=== PATIENT | female | born 1955 | race African-American/Black ===

== ENCOUNTER 2020-11-26 13:34 | Emergency (ER) | payer MEDICAID ==
[~2020-11-26] VITALS: Ht 167.6 cm; Wt 89.4 kg
[2020-11-26 15:23] LABS: Basophils # (auto) 0 10 ^3/uL (0-0.2); Basophils % (auto) 0.5 % (0.0-2.0); Eosinophils # (auto) 0.3 10 ^3/uL (0-0.8); Eosinophils % (auto) 3.1 % (0.0-7.0); Hematocrit 43.4 % (36.0-46.0); Lymphocytes # (auto) 3.3 10 ^3/uL (0.4-5.4); Lymphocytes % (auto) 37.9 % (10.0-50.0); Mean Corpuscular Hemoglobin 29.5 pg (28.0-32.0); Mean Corpuscular Hgb Conc. 34.7 g/dL (32.0-36.0); Monocytes # (auto) 0.8 10 ^3/uL (0-1.3); Monocytes % (auto) 9.1 % (0.0-12.0); Neutrophils # (auto) 4.4 10 ^3/uL (1.6-8.6); Neutrophils % (auto) 49.4 % (37.0-80.0); Platelet Count (auto) 251 10^3/uL (140-450); Red Blood Cells 5.11 10^6/uL (4.0-5.20); Red Cell Distribution Width 14.2 % (11.8-14.3); White Blood Cell 8.8 10^3/uL (4.4-10.8)
[2020-11-26 15:42] LABS: Albumin 4.5 g/dL (3.4-5.0); Anion Gap 6 (5-15); Blood Urea Nitrogen 11 mg/dL (7-18); Calcium 9.9 mg/dL (8.5-10.1); Carbon Dioxide 30 mmol/L (21-32); Chloride 105 mmol/L (98-107); Glucose 87 mg/dL (74-106); Magnesium 2.7 mg/dL (1.6-2.6); Potassium 3.9 mmol/L (3.5-5.1); Sodium 141 mmol/L (136-145)
[2020-11-26 15:50] LABS: Alanine Aminotransferase 31 U/L (13-56); Alkaline Phosphatase 111 U/L (45-117); Aspartate Aminotransferase 31 U/L (15-37); Bilirubin, Total 0.5 mg/dL (0.2-1.0); GFR African American 72 mL/min; GFR Non-African American 59 mL/min; Total Protein 8.5 g/dL (6.4-8.2)
[2020-11-26 16:34] LABS: Urine Bacteria FEW /hpf (None Seen); Urine Blood Negative /uL (Negative); Urine Mucus FEW (None Seen); Urine Specific Gravity 1.022 (1.001-1.035); Urine WBC 2 /hpf (0 - 5)
[2020-11-26 17:00] VITALS: BP 158/81
[2020-11-26] MEDS ORDERED: KETOROLAC TROMETH 60MG/2ML VIAL IM ONE (17:00)
== END 2020-11-26 18:07 | disposition home or self-care (01) ==
LOC: ER 13:34
DX: R42 Dizziness and giddiness (principal); M54.31 Sciatica, right side; I10 Essential (primary) hypertension; Z90.49 Acquired absence of other specified parts of digestive tract
CPT/HCPCS: 36415; 80053; 81001; 83735; 84484; 85025; 85049; 93005; 96372; 99284; J1885

== ENCOUNTER 2022-12-22 11:27 | Emergency (ER) | payer OTHER ==
[~2022-12-22] VITALS: Ht 167.6 cm; Wt 90.8 kg
[~2022-12-22 11:27] MED LIST: MELO7.5T9 PO
[2022-12-22] MEDS ORDERED: ASPirin 81 mg TAB PO ONE (12:15)
[2022-12-22] MEDS ORDERED: SODIUM CHLORIDE 0.9% 1,000 ML IV ONE (12:15)
[2022-12-22] MEDS ORDERED: LABETALOL HCL 5 MG/ML 4ML SYRINGE IV ONE (12:15)
[2022-12-22] MEDS ORDERED: LORazepam 2MG/ML-1ML VIAL IV ONE (12:15)
[2022-12-22 12:16] LABS: Basophils # (auto) 0 10 ^3/uL (0-0.2); Basophils % (auto) 0.5 % (0.0-2.0); Eosinophils # (auto) 0.2 10 ^3/uL (0-0.8); Eosinophils % (auto) 2.5 % (0.0-7.0); Hematocrit 46.2 % (36.0-46.0); Hemoglobin 15.2 g/dL (12.2-16.2); Lymphocytes # (auto) 2.6 10 ^3/uL (0.4-5.4); Lymphocytes % (auto) 32.7 % (10.0-50.0); Mean Corpuscular Hemoglobin 28.1 pg (28.0-32.0); Mean Corpuscular Volume 85.2 fL (80.0-100.0); Monocytes # (auto) 0.7 10 ^3/uL (0-1.3); Monocytes % (auto) 8.1 % (0.0-12.0); Neutrophils # (auto) 4.5 10 ^3/uL (1.6-8.6); Neutrophils % (auto) 56.2 % (37.0-80.0); Nucleated Red Blood Cells % 0.1 %; Red Blood Cells 5.42 10^6/uL (4.0-5.20); Red Cell Distribution Width 14.9 % (11.8-14.3)
[2022-12-22 12:30] LABS: Albumin 4.2 g/dL (3.4-5.0); Calcium 9.4 mg/dL (8.5-10.1); Potassium 3.6 mmol/L (3.5-5.1)
[2022-12-22 12:35] LABS: BUN/Creatinine Ratio 10.4 (10.0-20.0); Bilirubin, Total 0.6 mg/dL (0.2-1.0); Total Protein 8.4 g/dL (6.4-8.2)
[2022-12-22 13:01] LABS: Urine Bacteria NONE SEEN /hpf (None Seen); Urine Blood Negative /uL (Negative); Urine Hyaline Cast FEW /lpf (0 - 2); Urine Specific Gravity 1.006 (1.001-1.035); Urine WBC <1 /hpf (0 - 5)
[2022-12-22 13:14] VITALS: RESP 18; O2SAT 98
[2022-12-22] MEDS ORDERED: NEBI5TAB12 PO (13:47)
[2022-12-22] MEDS ORDERED: HYDR25TA5 PO (13:47)
[2022-12-22 14:19] VITALS: BP 158/82; PULSE 67; RESP 18; TEMP 98.3; O2SAT 97
== END 2022-12-22 15:00 | disposition home or self-care (01) ==
LOC: ER 11:27
DX: I10 Essential (primary) hypertension (principal); R10.9 Unspecified abdominal pain; R51.9 Headache, unspecified; Z90.49 Acquired absence of other specified parts of digestive tract
CPT/HCPCS: 36415; 71046; 80053; 81001; 83735; 84443; 85025; 93005; 96361; 96374; 96375; 99285; J2060; J3490; J7030

== ENCOUNTER 2024-06-23 16:34 | Emergency (ER) | payer OTHER ==
[~2024-06-23] VITALS: Ht 167.6 cm; Wt 91.9 kg
[~2024-06-23 16:34] MED LIST changes: +HYDR25TA5 PO; +NEBI5TAB12 PO
--- NOTE | 2024-06-23 17:32 | ED.PDOC ---
Back pain HPI Chief Complaint: Back Pain Comments pt has been coughing for 2 weeks. now has upper back pain with palpation. no sob. no fever, no pain on coughing. no abdominal or chest pain. pt denies any medical history Time Seen by MD: 16:49 Primary Care Provider: DR RUBI Allergies: Coded Allergies: NO KNOWN ALLERGIES (Unverified , 09/20/14) Home Meds Active Scripts Hctz (Hydrochlorothiazide) 25 Mg Tab, 12.5 MG PO DAILY for 30 Days, #30 TAB Prov:TANMAY BURROWS MD 12/22/22 Nebivolol HCl (Nebivolol) 5 Mg Tab, 5 MG PO DAILY for 30 Days, #30 TAB Prov:TANMAY BURROWS MD 12/22/22 Meloxicam (Mobic) 7.5 Mg Tab, 7.5 MG PO BID, #30 TAB Prov:JABARI PETERSON 07/01/22 Information Source: Patient Mode of Arrival: Ambulatory Timing: Weeks Onset: Other (after coughing) Associated signs and symptoms: None Past Medical History PAST MEDICAL HISTORY: HTN Surgical History: Cholecystectomy [employer]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: 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 Family History Family History: Reviewed,noncontributory to illness Social History Smoker: Non-Smoker Alcohol: Denies ETOH Use Drugs: Denies Drug Use Lives In: Home Constitutional: denies: chills, diaphoresis, fatigue, fever, malaise, sweats, weakness, others EENTM: denies: blurred vision, double vision, ear bleeding, ear discharge, ear drainage, ear pain, ear ringing, eye pain, eye redness, hearing loss, mouth pain, mouth swelling, nasal discharge, nose bleeding, nose congestion, nose pain, photophobia, tearing, throat pain, throat swelling, voice changes, others Respiratory: denies: cough, hemoptysis, orthopnea, SOB at rest, shortness of breath, SOB with excertion, stridor, wheezing, others Cardiovascular: denies: chest pain, dizzy spells, diaphoresis, Dyspnea on exert ion, edema, irregular heart beat, left arm pain, lightheadedness, palpitations, PND, syncope, others Gastrointestinal: denies: abdomen distended, abdominal pain, blood streaked bowels, constipated, diarrhea, dysphagia, difficulty swallowing, hematemesis, melena, nausea, poor appetite, poor fluid intake, rectal bleeding, rectal pain, vomiting, others Genitourinary: denies: abnormal vagina bleeding, burning, dyspareunia, dysuria, flank pain, frequency, hematuria, incontinence, pain, , vagina discharge, urgency, others Neurological: denies: dizziness, fainting, headache, left sided numbness, left sided weakness, numbness, paresthesia, pre-existing deficit, right sided numbness, right sided weakness, seizure, speech problems, tingling, tremors, weakness, others Musculoskeletal: reports: back pain; denies: gout, joint pain, joint swelling, muscle pain, muscle stiffness, neck pain, others Integumetry: denies: bruises, change in color, change in hair/nails, dryness, laceration, lesions, lumps, rash, wounds, others Allergic/Immunocompromised: denies: Difficulty Healing, Frequent Infections, Hives, Itching, others Hematologic/Lymphatic: denies: anemia, blood clots, easy bleeding, easy bruising, swollen glands, others Endocrine: denies: excessive hunger, excessive sweating, excessive thirst, excessive urination, flushing, intolerance to cold, intolerance to heat, unexplained weight gain, unexplained weight loss, others Psychiatric: denies: anxiety, bipolar disorder, depression, hopeless, panic disorder, schizophrenia, sleepless, suicidal, others All Other Systems: Reviewed and Negative Physical Exam General Appearance: No Apparent Distress, Normal HEENT: Normal ENT Inspection, Pharynx Normal, TMs Normal Neck: Full Range of Motion, Non-Tender, Normal, Normal Inspection Respiratory: Chest Non-Tender, Lungs Clear, No Accessory Muscle Use, No Respiratory Distress, Normal Breath Sounds Cardiovascular: No Edema, No JVD, No Murmur, No Gallop, Normal Peripheral Pulses, Regular Rate/Rhythm Breast Exam: Deferred Gastrointestinal: No Organomegaly, Non Tender, No Pulsatile Mass, Normal Bowel Sounds, Soft Genitalia: Deferred Pelvic: Deferred Rectal: Deferred Extremities: No calf tenderness, Normal capillary refill, Normal inspection, Normal range of motion, Non-tender, No pedal edema Musculoskeletal : Extremity Location: Back (upper back) Apperance: Normal, Tenderness, Tenderness: Mild Neurologic: Alert, preprint analyst II-XII nml as Tested, No Motor Deficits, Normal Affect, Normal Mood, No Sensory Deficits Cerebellar Function: Normal Reflexes: Normal Skin: Dry, Normal Color, Warm Lymphatic: No Adenopathy Was a procedure done? Was a procedure done?: No EKG EKG : Pulse Rate (adult): 90 [place]: Normal Cardiac Rhythm: NSR Block: None Hypertrophy: None ST: Normal Back Pain Differential Dx Differential Diagnosis: Musculoskeletal Pain, Other (pneumonia, pleurisy, rib fractures, ptx) X-Ray, Labs, Meds, VS Vital Signs Date Time Temp Pulse Resp B/P (MAP) Pulse Ox O2 Delivery O2 Flow Rate FiO2 06/23/24 17:41 186/101 06/23/24 17:32 90 06/23/24 17:29 98.9 73 16 180/85 (116) 97 06/23/24 17:29 16 97 Room Air* 0 21 Lab Test 06/23/24 18:01 Range/Units White Blood Count 8.1 4.4-10.8 10^3/uL Red Blood Count 5.47 H 4.0-5.20 10^6/uL Hemoglobin 15.2 12.2-16.2 g/dL Hematocrit 46.5 H 36.0-46.0 % Mean Corpuscular Volume 85.1 80.0-100.0 fL Mean Corpuscular Hemoglobin 27.7 L 28.0-32.0 pg Mean Corpuscular Hemoglobin Concent 32.6 32.0-36.0 g/dL Red Cell Distribution Width 14.8 H 11.8-14.3 % Platelet Count 260 140-450 10^3/uL Mean Platelet Volume 7.7 6.9-10.8 fL Neutrophils (%) (Auto) 44.6 37.0-80.0 % Lymphocytes (%) (Auto) 38.8 10.0-50.0 % Monocytes (%) (Auto) 10.7 0.0-12.0 % Eosinophils (%) (Auto) 5.4 0.0-7.0 % Basophils (%) (Auto) 0.5 0.0-2.0 % Neutrophils # (Auto) 3.6 1.6-8.6 10 ^3/uL Lymphocytes # (Auto) 3.1 0.4-5.4 10 ^3/uL Monocytes # (Auto) 0.9 0-1.3 10 ^3/uL Eosinophils # (Auto) 0.4 0-0.8 10 ^3/uL Basophils # (Auto) 0 0-0.2 10 ^3/uL Nucleated Red Blood Cells 0.0 % Sodium Level 141 136-145 mmol/L Potassium Level 4.2 3.5-5.1 mmol/L Chloride Level 107 98-107 mmol/L Carbon Dioxide Level 28 20-31 mmol/L Anion Gap 6 5-15 Blood Urea Nitrogen 11 9-23 mg/dL Creatinine 0.99 0.550-1.02 mg/dL Glomerular Filtration Rate Calc 62 >90 mL/min BUN/Creatinine Ratio 11.1 10.0-20.0 Serum Glucose 97 74-106 mg/dL Calcium Level 10.2 8.7-10.4 mg/dL Troponin I High Sensitivity 3 L </=34 ng/L Current Medications Medications (Trade) Dose Ordered Sig/Markus Route Start Time Stop Time Status Last Admin Acetaminophen/ Hydrocodone Bitart ([place] 5/325MG Tab) 1 tab ONCE ONCE PO 06/23/24 17:30 06/23/24 17:31 DC 06/23/24 17:39 Clonidine HCl (Catapres Tablet) 0.1 mg ONCE ONCE PO 06/23/24 17:45 06/23/24 17:46 DC 06/23/24 17:41 Time of 1ST Reevaluation: 19:31 Reevaluation 1ST: Improved Patient Education/Counseling: Diagnosis, Treatment, Prognosis, Need For Follow Up Family Education/Counseling: No Family Present Departure 1 Departure Time of Disposition: 19:26 Impression: Primary Impression: Back pain Qualified Codes: M54.6 - Pain in thoracic spine Additional Impressions: Bronchitis Hypertension Qualified Codes: I10 - Essential (primary) hypertension Disposition: 01 HOME / SELF CARE / HOMELESS Condition: Good Additional Instructions: start a no salt added diet. follow up with your doctor to recheck your blood pressure. you may take tylenol as needed with your prescribed muscle relaxant for back pain e-Prescriptions Cyclobenzaprine Hcl (CYCLOBENZAPRINE HCL) 7.5 Mg Tab 7.5 MG PO Q12HP PRN, #4 TAB Prov: CHRIS MCCRARY MD 06/23/24 Hctz (Hydrochlorothiazide) 25 Mg Tab 25 MG GT DAILY for 10 Days, #10 TAB Prov: CHRIS MCCRARY MD 06/23/24 Discharged With: Self Critical Care Note Critical Care Time?: No Stability Stability form required: No HERMANNHAICHI S MD Jun 23, 2024 17:32
[2024-06-23] MEDS: HYDROcodone-ACET 5/325MG TAB PO ONE (17:39)
[2024-06-23] MEDS: cloNIDine HCL 0.1 MG TAB PO ONE (17:41)
[2024-06-23 18:13] LABS: Basophils # (auto) 0 10 ^3/uL (0-0.2); Basophils % (auto) 0.5 % (0.0-2.0); Eosinophils # (auto) 0.4 10 ^3/uL (0-0.8); Eosinophils % (auto) 5.4 % (0.0-7.0); Hematocrit 46.5 % (36.0-46.0); Hemoglobin 15.2 g/dL (12.2-16.2); Lymphocytes # (auto) 3.1 10 ^3/uL (0.4-5.4); Lymphocytes % (auto) 38.8 % (10.0-50.0); Mean Corpuscular Hemoglobin 27.7 pg (28.0-32.0); Mean Corpuscular Hgb Conc. 32.6 g/dL (32.0-36.0); Mean Corpuscular Volume 85.1 fL (80.0-100.0); Monocytes # (auto) 0.9 10 ^3/uL (0-1.3); Monocytes % (auto) 10.7 % (0.0-12.0); Neutrophils # (auto) 3.6 10 ^3/uL (1.6-8.6); Neutrophils % (auto) 44.6 % (37.0-80.0); Platelet Count (auto) 260 10^3/uL (140-450); Red Blood Cells 5.47 10^6/uL (4.0-5.20); Red Cell Distribution Width 14.8 % (11.8-14.3); White Blood Cell 8.1 10^3/uL (4.4-10.8)
[2024-06-23 18:20] LABS: Chloride 107 mmol/L (98-107); Potassium 4.2 mmol/L (3.5-5.1); Sodium 141 mmol/L (136-145)
[2024-06-23 18:21] LABS: Anion Gap 6 (5-15); Calcium 10.2 mg/dL (8.7-10.4); Carbon Dioxide 28 mmol/L (20-31)
[2024-06-23 18:26] LABS: BUN/Creatinine Ratio 11.1 (10.0-20.0); Blood Urea Nitrogen 11 mg/dL (9-23); Glucose 97 mg/dL (74-106)
--- NOTE | 2024-06-23 18:57 | DVH ---
Procedure: XY CHEST PORTABLE 06/23/2024 06:01 PM Indication: back pain Comparison: None TECHNIQUE: XY CHEST PORTABLE FINDINGS: Medical devices: None. Cardiomediastinal: The heart is normal in size. Pulmonary vasculature is within normal limits. Lungs: No focal pulmonary opacity is seen. The costophrenic angles are clear. No pneumothorax. Bones/soft tissues: No acute abnormality is noted. IMPRESSION: 1. No acute cardiopulmonary disease.
[2024-06-23] MEDS ORDERED: HYDR25TA5 GT (19:28)
[2024-06-23] MEDS ORDERED: CYCL-838 PO (19:29)
[2024-06-23 20:17] VITALS: BP 114/67; PULSE 67; RESP 18; TEMP 98; O2SAT 96
== END 2024-06-23 20:27 | disposition home or self-care (01) ==
LOC: ER 16:43
DX: J40 Bronchitis, not specified as acute or chronic (principal); I10 Essential (primary) hypertension; M54.6 Pain in thoracic spine; Z79.899 Other long term (current) drug therapy; Z90.49 Acquired absence of other specified parts of digestive tract
CPT/HCPCS: 36415; 71045; 80048; 84484; 85025

== ENCOUNTER 2025-02-02 14:46 | Inpatient (IN) | payer OTHER ==
[~2025-02-02] VITALS: Ht 167.6 cm; Wt 95.5 kg
[~2025-02-02 14:46] MED LIST changes: +CYCL-838 PO; +HYDR25TA5 GT
--- NOTE | 2025-02-02 15:17 | ED.PDOC ---
History of Present Illness(SKN HPI Comments 69 y.o female presents to the ED for an evaluation of right lower leg swelling associated with erythema that started 1 week ago s/p mosquito bite. Patient reports she [place] when she noticed mosquito bites to her leg. Patient was seen by PCP 5 days ago, placed her on Augmentin but states swelling has worsened. She denies any fever, chills, weeping wound, chest pain or SOB. Chief Complaint: Lower Extremity Time Seen by MD: 15:07 Primary Care Provider: DR RUBI History of Present Illness: Nurses Notes, Medications, Allergies Allergies: Coded Allergies: NO KNOWN ALLERGIES (Unverified , 09/20/14) Home Meds Active Scripts Cyclobenzaprine Hcl (CYCLOBENZAPRINE HCL) 7.5 Mg Tab, 7.5 MG PO Q12HP PRN, #4 TAB Prov:CHRIS MCCRARY MD 06/23/24 Hctz (Hydrochlorothiazide) 25 Mg Tab, 25 MG GT DAILY for 10 Days, #10 TAB Prov:CHRIS MCCRARY MD 06/23/24 Hctz (Hydrochlorothiazide) 25 Mg Tab, 12.5 MG PO DAILY for 30 Days, #30 TAB Prov:TANMAY BURROWS MD 12/22/22 Nebivolol HCl (Nebivolol) 5 Mg Tab, 5 MG PO DAILY for 30 Days, #30 TAB Prov:TANMAY BURROWS MD 12/22/22 Meloxicam (Mobic) 7.5 Mg Tab, 7.5 MG PO BID, #30 TAB Prov:JABARI PETERSON 07/01/22 Information Source: Patient Mode of Arrival: Ambulatory Severity: Moderate Timing: Weeks (1) Duration: Since onset Location: Leg Mechanism: Insect Occurence: Outdoors Object: None Wound Type: Other Associated Signs and Symptoms: Redness, Swelling Past Medical History PAST MEDICAL HISTORY: Denies Surgical History: Cholecystectomy [employer]PENTER [employer] MAINTENANCE History: No Pertinent [employer]INTENANCE History Family History Family History: Reviewed,noncontributory to illness Social History Smoker: Non-Smoker Alcohol: Denies ETOH Use Drugs: Denies Drug Use Lives In: Home Constitutional: denies: chills, diaphoresis, fatigue, fever, malaise, sweats, weakness, others EENTM: denies: blurred vision, double vision, ear bleeding, ear discharge, ear drainage, ear pain, ear ringing, eye pain, eye redness, hearing loss, mouth pain, mouth swelling, nasal discharge, nose bleeding, nose congestion, nose pain, photophobia, tearing, throat pain, throat swelling, voice changes, others Respiratory: denies: cough, hemoptysis, orthopnea, SOB at rest, shortness of breath, SOB with excertion, stridor, wheezing, others Cardiovascular: denies: chest pain, dizzy spells, diaphoresis, Dyspnea on exertion, edema, irregular heart beat, left arm pain, lightheadedness, palpitations, PND, syncope, others Gastrointestinal: denies: abdomen distended, abdominal pain, blood streaked bowels, constipated, diarrhea, dysphagia, difficulty swallowing, hematemesis, melena, nausea, poor appetite, poor fluid intake, rectal bleeding, rectal pain, vomiting, others Genitourinary: denies: abnormal vagina bleeding, burning, dyspareunia, dysuria, flank pain, frequency, hematuria, incontinence, pain, , vagina discharge, urgency, others Neurological: denies: dizziness, fainting, headache, left sided numbness, left sided weakness, numbness, paresthesia, pre-existing deficit, right sided numbness, right sided weakness, seizure, speech problems, tingling, tremors, weakness, others Musculoskeletal: denies: back pain, gout, joint pain, joint swelling, muscle p ain, muscle stiffness, neck pain, others Integumetry: reports: others (Erythema to the right lower extremity with swelling ); denies: bruises, change in color, change in hair/nails, dryness, laceration, lesions, lumps, rash, wounds Allergic/Immunocompromised: denies: Difficulty Healing, Frequent Infections, Hives, Itching, others Hematologic/Lymphatic: denies: anemia, blood clots, easy bleeding, easy bruising, swollen glands, others Endocrine: denies: excessive hunger, excessive sweating, excessive thirst, excessive urination, flushing, intolerance to cold, intolerance to heat, unexplained weight gain, unexplained weight loss, others Psychiatric: denies: anxiety, bipolar disorder, depression, hopeless, panic disorder, schizophrenia, sleepless, suicidal, others All Other Systems: Reviewed and Negative Physical Exam General Appearance: Moderate Distress HEENT: Normal ENT Inspection, Pharynx Normal, TMs Normal Neck: Full Range of Motion, Non-Tender, Normal, Normal Inspection Respiratory: Chest Non-Tender, Lungs Clear, No Accessory Muscle Use, No Respiratory Distress, Normal Breath Sounds Cardiovascular: No Edema, No JVD, No Murmur, No Gallop, Normal Peripheral Pulses, Regular Rate/Rhythm Breast Exam: Deferred Gastrointestinal: No Organomegaly, Non Tender, No Pulsatile Mass, Normal Bowel Sounds, Soft Genitalia: Deferred Pelvic: Deferred Rectal: Deferred Extremities: No calf tenderness, Swelling (Right lower extremity) Musculoskeletal : Apperance: Normal Neurologic: Alert, pot pusher II-XII nml as Tested, No Motor Deficits, Normal Affect, Normal Mood, No Sensory Deficits Cerebellar Function: Normal, NOT DONE Reflexes: Normal, NOT DONE Skin: Dry, Normal Color, Warm Peripheral Pulses: 3+ Radial (R), 3+ Radial (L) Lymphatic: No Adenopathy Was a procedure done? Was a procedure done?: No Differential Diagnosis (INTG) Differential Diagnosis: Cellulitis, Insect Envenomation, Puncture Wound Differential Diagnosis: Viral exanthema X-Ray, Labs, Meds, VS Vital Signs Date Time Temp Pulse Resp B/P (MAP) Pulse Ox O2 Delivery O2 Flow Rate FiO2 02/02/25 14:47 98.9 96 16 179/94 95 98.9 Patient alert. Does have right lower extremity swelling. Has been having this symptom for weeks. Vitals stable. No shortness a breath. Blood pressure elevated. Was given clonidine. Explained to the patient that she will need to be admitted for intravenous antibiotics. Continue monitoring. Time of 1ST Reevaluation: 15:13 Reevaluation 1ST: Unchanged Patient Education/Counseling: Diagnosis, Treatment, Prognosis Family Education/Counseling: No Family Present SEPSIS Sepsis Screen Date sepsis recognized/suspect: Feb 02, 2025 Time Sepsis recognized/suspect: 1447 Recent Procedure: No On Antibiotic Therapy: No Respiratory Rate >20: No Heart Rate >90: Yes Temp<36 C (96.8 F) or >38.3 C: No SBP <90 or MAP <65 mmHG: No New Acute Mental Status Change: No Is the patient on CPAP, BIPAP,: No Physician Orders Troponin-I Hs (02/02/25 16:47) Complete Blood Count (02/02/25 16:47) Urinalysis (02/02/25 16:47) Basic Metabolic Panel (02/02/25 16:47) 1 Liter Bolus Of 0.9% Ns (02/02/25 17:00) Ceftriaxone Ivpb Rocephin (02/02/25 17:00) Clindamycin Ivpb Cleocin (02/02/25 17:00) Vital Signs Date Time Temp Pulse Resp B/P (MAP) Pulse Ox O2 Delivery O2 Flow Rate FiO2 02/02/25 14:47 98.9 96 16 179/94 95 98.9 Departure 1 Departure Time of Disposition: 16:50 Impression: Primary Impression: Cellulitis Qualified Codes: L03.115 - Cellulitis of right lower limb Disposition: ADMITTED INPATIENT Admit to: Med Surg Condition: Guarded Critical Care Note Critical Care Time?: No Stability Stability form required: No I personally scribed for FRED CHAUHAN MD ([email or web address]) on 02/02/25 at 15:17. Electronically submitted by Radha Nelson ([facility]). FRED CHAUHAN MD Feb 02, 2025 15:17
[2025-02-02 17:37] LABS: Potassium 3.9 mmol/L (3.5-5.1); Sodium 144 mmol/L (136-145)
[2025-02-02 17:38] LABS: Anion Gap 9 (5-15); Carbon Dioxide 28 mmol/L (20-31); Hematocrit 41.8 % (36.0-46.0); Hemoglobin 14.0 g/dL (12.2-16.2); Mean Corpuscular Hemoglobin 28.6 pg (28.0-32.0); Mean Corpuscular Volume 85.6 fL (80.0-100.0); Nucleated Red Blood Cells % 0.0 %
[2025-02-02 17:39] LABS: Calcium 9.7 mg/dL (8.7-10.4)
[2025-02-02 17:44] LABS: BUN/Creatinine Ratio 8.1 (10.0-20.0); Glucose 101 mg/dL (74-106)
[2025-02-02 18:15] LABS: Blood Urea Nitrogen 8 mg/dL (9-23); Chloride 107 mmol/L (98-107)
[2025-02-02] MEDS: SODIUM CHLORIDE 0.9% 1,000 ML IV ONE ×2 (19:46→22:00)
[2025-02-02] MEDS: CLINDAMYCIN 300MG IV 50 ML IV ONE (20:24)
[2025-02-02] MEDS ORDERED: NITROGLYCERIN 0.4 MG SL TAB SL PRN (21:15)
[2025-02-02] MEDS ORDERED: MORPHINE SULFATE INJ 2 MG/ml SYRG IV PRN (21:15)
[2025-02-02] MEDS ORDERED: ONDANSETRON HCL 4 MG/2 ML VIAL IV PRN (21:15)
[2025-02-02 21:35] LABS: Triglycerides 74.0 mg/dL (< 150)
[2025-02-02 21:36] LABS: Magnesium 2.1 mg/dL (1.6-2.6)
[2025-02-02 21:37] LABS: Cholesterol 120.0 mg/dL (< 200); HDL Cholesterol 44.0 mg/dL (40-59)
[2025-02-02 21:52] LABS: INR 1.02 (0.9-1.15); Partial Thromboplastin Time 26.8 SEC (24.5-34.5); Prothrombin Time 10.8 sec (9.3-11.8)
--- NOTE | 2025-02-02 21:57 | DVHHPRES ---
History of Present Illness Resident Creating Document: JESUS MOTA History of Present Illness Salma Ch is a 69-year-old female patient who presents to ED with chief complaint of right lower leg swelling and pain which started approximately five days ago (01/28/2025). Per patient she believes it was triggered after mosquito bite on 01/23/2025 when she went to the [facility], but was then flared up after being treated for UTI on 01/26/2025 (she was on Keflex). She went to the urgent care on 01/28/2025 where she was diagnosed with cellulitis and switch antibiotics to Augmentin p.o.. Patient did not present improvement of her lower limbs after five days of p.o. antibiotics, prompting her visit to the ED on 02/02/2025. Denies fever, chills, chest pain, dyspnea, palpitation, syncope, nausea, vomiting diarrhea and sick contacts. Past medical history: Hypertension Surgical history: Cholecystectomy, right knee surgery Family history: Noncontributory Social history lives in [place] alone (next of kin is daughter). Denies tobacco, alcohol and other drug abuse Allergies: Denies Home medication: Losartan p.r.n. Patient seen and examined in [facility]. Patient continues with right lower limb swelling and pain, indicated morphine at this time. Ordered cultures which are pending. Past Medical History Per HPI Past Surgical History Per HPI Family History Per HPI Past Social History Per HPI Review of Systems Review of Systems Per HPI Allergies: Coded Allergies: NO KNOWN ALLERGIES (Unverified , 09/20/14) Medications Current Medications Medications Dose Ordered Sig/Markus Route Start Time Stop Time Status Last Admin Dose Admin Morphine Sulfate 2 mg Q4HPRN PRN IV 02/02/25 21:15 Enoxaparin Sodium 40 mg DAILY SC 02/03/25 10:00 Morphine Sulfate 2 mg Q30M PRN IV 02/02/25 21:15 Clindamycin Phosphate 50 ml @ 50 mls/hr Q8HR IV 02/02/25 22:00 UNV Sodium Chloride 1,000 ml @ 100 mls/hr Q10H IV 02/02/25 22:00 UNV Exam Vital Signs Vital Signs Date Time Temp Pulse Resp B/P (MAP) Pulse Ox O2 Delivery O2 Flow Rate FiO2 02/02/25 19:39 99.5 84 19 140/79 (99) 98 99.5 02/02/25 19:39 Room Air Exam Patient lying in bed, in no acute distress General: Lucid, afebrile, mucosae are moist Cardiovascular: Normal S1 and S2. No murmurs, gallops or rubs Respiratory: Normal ventilation mechanics. Clear lung sounds on auscultation Abdomen: Soft, nontender, no organomegaly, normal bowel sounds MSK/skin: Mobilizes 4 limbs. Right lower limb distally resolve the knee is swollen and presents erythema, mildly warm to the touch, with seeping serous secretion through skin, rest of skin is dry and warm. Neurological: Oriented in 3 spheres. No motor no sensitive deficits. Pupils are isocoric and reactive Labs/Xrays Labs Test 02/02/25 17:16 Range/Units White Blood Count 9.4 4.4-10.8 10^3/uL Red Blood Count 4.88 4.0-5.20 10^6/uL Hemoglobin 14.0 12.2-16.2 g/dL Hematocrit 41.8 36.0-46.0 % Mean Corpuscular Volume 85.6 80.0-100.0 fL Mean Corpuscular Hemoglobin 28.6 28.0-32.0 pg Mean Corpuscular Hemoglobin Concent 33.4 32.0-36.0 g/dL Red Cell Distribution Width 14.5 H 11.8-14.3 % Platelet Count 252 140-450 10^3/uL Mean Platelet Volume 7.9 6.9-10.8 fL Neutrophils (%) (Auto) 57.3 37.0-80.0 % Lymphocytes (%) (Auto) 26.5 10.0-50.0 % Monocytes (%) (Auto) 13.4 H 0.0-12.0 % Eosinophils (%) (Auto) 2.3 0.0-7.0 % Basophils (%) (Auto) 0.5 0.0-2.0 % Neutrophils # (Auto) 5.4 1.6-8.6 10 ^3/uL Lymphocytes # (Auto) 2.5 0.4-5.4 10 ^3/uL Monocytes # (Auto) 1.3 0-1.3 10 ^3/uL Eosinophils # (Auto) 0.2 0-0.8 10 ^3/uL Basophils # (Auto) 0 0-0.2 10 ^3/uL Nucleated Red Blood Cells 0.0 % Sodium Level 144 136-145 mmol/L Potassium Level 3.9 3.5-5.1 mmol/L Chloride Level 107 98-107 mmol/L Carbon Dioxide Level 28 20-31 mmol/L Anion Gap 9 5-15 Blood Urea Nitrogen 8 L 9-23 mg/dL Creatinine 0.99 0.550-1.02 mg/dL Glomerular Filtration Rate Calc 62 >90 mL/min BUN/Creatinine Ratio 8.1 L 10.0-20.0 Serum Glucose 101 74-106 mg/dL Hemoglobin A1c 5.7 <5.7 % A1C Calcium Level 9.7 8.7-10.4 mg/dL Phosphorus Level 3.0 2.4-5.1 mg/dL Magnesium Level 2.1 1.6-2.6 mg/dL Troponin I High Sensitivity 4 </=34 ng/L Triglycerides Level 74 < 150 mg/dL Cholesterol Level 120 < 200 mg/dL LDL Cholesterol 67 < 100 mg/dL HDL Cholesterol 44 40-59 mg/dL SEPSIS Sepsis Screen Date sepsis recognized/suspect: Feb 02, 2025 Time Sepsis recognized/suspect: 1446 Recent Procedure: No On Antibiotic Therapy: No Respiratory Rate >20: No Heart Rate >90: Yes Temp<36 C (96.8 F) or >38.3 C: No SBP <90 or MAP <65 mmHG: No New Acute Mental Status Change: No Is the patient on CPAP, BIPAP,: No Physician Orders Urinalysis (02/02/25 16:47) Admit (02/02/25 21:10) Code Status (02/02/25 21:10) Vital Signs .PER UNIT PROTOCOL (02/02/25 21:10) Review Orders With Adm.Md (02/02/25 21:10) Regular Diet (02/03/25 Breakfast) Notify Md Of Changes From Base (02/02/25 21:10) Advance Directive (02/02/25 21:10) Chest Two Views Routine (02/03/25 04:00) Patient Condition (02/02/25 21:10) Allergies (02/02/25 21:10) Morphine Sulfate Injection (02/02/25 21:15) Enoxaparin Sodium (Lovenox) (02/03/25 10:00) Morphine Sulfate Injection (02/02/25 21:15) Oxygen By Nasal Cannula (02/02/25 21:10) Stat Ekg For Chest Pain (02/02/25 21:10) Notify Of Changes From Base (02/02/25 21:10) Mannequin Mold Maker For 24 Hours (02/02/25 21:10) Emergency Dysrhythmia Protocol (02/02/25 21:10) Rhythm Strips Once Every Shift (02/02/25 21:10) Vitamin D, 25-Hydroxy (02/02/25 21:10) Vitamin B12 (02/02/25 21:10) Thyroid Stimulating Hormone (02/02/25 21:10) PTPTT (02/02/25 21:10) Lactic Acid W/ Reflex Order (02/02/25 21:10) Drug Screen (02/02/25 21:10) Hepatic Panel (02/02/25 21:10) Rt Lower Dvt (02/02/25 21:52) Right Lower Extremity Ultrasou (02/02/25 21:52) Clindamycin 300mg Iv (Cleocin Iv) (02/02/25 22:00) Clindamycin 300mg Iv (Cleocin Iv) (02/02/25 22:00) Sodium Chloride 0.9% (02/02/25 22:00) Sodium Chloride 0.9% (02/02/25 22:00) Vital Signs Date Time Temp Pulse Resp B/P (MAP) Pulse Ox O2 Delivery O2 Flow Rate FiO2 02/02/25 19:39 99.5 84 19 140/79 (99) 98 99.5 02/02/25 19:39 84 19 98 Room Air 02/02/25 14:47 98.9 96 16 179/94 95 98.9 Laboratory Tests Test 02/02/25 17:16 White Blood Count 9.4 10^3/uL (4.4-10.8) Medications Medications Dose Ordered Sig/Markus Route Start Time Stop Time Status Last Admin Dose Admin Ceftriaxone Sodium 50 ml @ 100 mls/hr ONCE ONCE IV 02/02/25 17:00 02/02/25 17:29 DC 02/02/25 19:46 100 MLS/HR Clindamycin Phosphate 50 ml @ 50 mls/hr ONCE ONCE IV 02/02/25 17:00 02/02/25 17:59 DC 02/02/25 20:24 50 MLS/HR Sodium Chloride 1,000 ml @ 1,000 mls/hr Q1H ONCE IV 02/02/25 17:00 02/02/25 17:59 DC 02/02/25 19:46 1,000 MLS/HR Assessment/Plan Assessment/Plan Sepsis secondary to cellulitis Cellulitis of right leg Rule out abscess Rule out lower limb DVT Patient presented low-grade fever and heart rate above 90 beats per minute. White blood cells within normal limits, ordered lactic acid Currently under empiric IV antibiotic (clindamycin) Indicated IV fluid resuscitation Ordered right lower limb extremity ultrasound to rule out DVT and ruled out collection (abscess) Ordered panculture (blood, urine and wound) Ordered wound care Recent UTI Patient was on Keflex, then switch to Augmentin Ordered urine analysis Hypertension Patient uses losartan p.r.n.. For now did not continue home medication. History of cholecystectomy History of right knee surgery Monitor Goals of care discussed with patient for over18 minutes: Full code status Discussed plan with Dr. Peterson, patient and nurses: Patient will be admitted to [facility] with diagnosis of sepsis secondary to cellulitis, she will require IV fluids and IV antibiotics. Ordered panculture and wound care. Pending rest of complementary workup. Plan discussed with: Patient, Other (Nurses) My Orders Orders - JESUS MOTA RESIDENT Procedure Category Date Status Time Admit ADMIT 02/02/25 Transmitted 21:10 Code Status CODE 02/02/25 Transmitted 21:10 Vital Signs KWAKU 02/02/25 In Process 21:10 Review Orders With KWAKU 02/02/25 In Process Adm. 21:10 Regular Diet DIET 02/03/25 Transmitted Breakfast Notify Of Changes KWAKU 02/02/25 In Process From Base 21:10 Advance Directive KWAKU 02/02/25 In Process 21:10 Chest Two Views XY 02/03/25 Logged Routine 04:00 Patient Condition ORDERS 02/02/25 Transmitted 21:10 Allergies KWAKU 02/02/25 In Process 21:10 Morphine Sulfate PHA 02/02/25 In Process Injection 21:15 Enoxaparin Sodium PHA 02/03/25 In Process (Lovenox) 10:00 Morphine Sulfate PHA 02/02/25 In Process Injection 21:15 Oxygen By Nasal RT 02/02/25 Transmitted Cannula 21:10 Stat Ekg For Chest KWAKU 02/02/25 In Process Pain 21:10 Notify Md Of Changes KWAKU 02/02/25 In Process From Base 21:10 Mannequin Mold Maker For KWAKU 02/02/25 In Process 24 Hours 21:10 Emergency Dysrhythmia KWAKU 02/02/25 In Process Protocol 21:10 Rhythm Strips Once KWAKU 02/02/25 In Process Every Shift 21:10 Vitamin D, 25-Hydroxy LAB 02/02/25 In Process 21:10 Vitamin B12 LAB 02/02/25 In Process 21:10 Thyroid Stimulating LAB 02/02/25 In Process Hormone 21:10 PTPTT LAB 02/02/25 In Process 21:10 Lactic Acid W/ Reflex LAB 02/02/25 Logged Order 21:10 Drug Screen LAB 02/02/25 Logged 21:10 Hepatic Panel LAB 02/02/25 In Process 21:10 Rt Lower Dvt US 02/02/25 Logged 21:52 Right Lower Extremity US 02/02/25 Logged Ultrasou 21:52 Clindamycin 300mg Iv PHA 02/02/25 Logged (Cleocin Iv) 22:00 Clindamycin 300mg Iv PHA 02/02/25 In Process (Cleocin Iv) 22:00 Sodium Chloride 0.9% PHA 02/02/25 In Process 22:00 Sodium Chloride 0.9% PHA 02/02/25 Logged 22:00 Date of Service: Feb 02, 2025 Billing Provider: MILAGROS PETERSON MD Common Visit Codes: [id number] INP/OBS CARE (HIGH) Secondary Visit Codes: [id number] CARE PLAN 30 MINUTES JESUS MOTA RESIDENT Feb 02, 2025 21:57 MILAGROS PETERSON MD Feb 06, 2025 14:11
[2025-02-02] MEDS ORDERED: CLINDAMYCIN 300MG IV 50 ML IV ONE (22:00)
[2025-02-02 22:24] LABS: Alanine Aminotransferase 16.0 U/L (7-40); Albumin 4.5 g/dL (3.2-4.8); Alkaline Phosphatase 97.0 U/L (46-116); Bilirubin, Direct 0.2 mg/dL (<0.3); Bilirubin, Total 0.5 mg/dL (0.2-1.0); Total Protein 7.6 g/dL (5.7-8.2)
[2025-02-02] MEDS ORDERED: MORPHINE SULFATE INJ 2 MG/ml SYRG ONE (23:29)
[2025-02-02] MEDS: MORPHINE SULFATE INJ 2 MG/ml SYRG IV PRN (23:30)
[2025-02-02] MEDS: SODIUM CHLORIDE 0.9% 1,000 ML IV SCH (23:33)
[2025-02-03] VITALS (8 sets, daily range): BP systolic 124–174; BP diastolic 61–101; PULSE 65–76; RESP 16–19; TEMP 96.3–98.1; O2SAT 89–97
--- NOTE | 2025-02-03 01:18 | DVH ---
Procedure: US RIGHT LOWER EXTREMITY ULTRASOU Exam Date: 02/02/2025 10:19 PM History: Rule out abscess Comparison Study: None Findings: Targeted superficial sonographic assessment of the right medial ankle. Extensive subcutaneous edema without significant hyperemia. No identified fluid collection or vascula r abnormality. Impression: 1. Subcutaneous fluid in the right medial ankle area of interest without fluid collection.
--- NOTE | 2025-02-03 01:19 | DVH ---
Right lower extremity venous duplex Clinical History: Right leg swelling Comparison: None Technique: Duplex Doppler evaluation of the deep venous system of the right lower extremity from the common femo ral vein to the popliteal vein including color Doppler and spectral/pulsed waveform analysis was perf ormed. Findings: The common femoral vein demonstrates appropriate compressibility and waveform variability. There is compressibility/patency of the great saphenous vein at the proximal thigh. The femoral vein demonstrates appropriate compressibility and waveform variability. The deep femoral vein demonstrates appropriate compressibility and waveform variability. The popliteal vein demonstrates appropriate compressibility and waveform variability. There is normal compressibility at the tibioperoneal trunk. Morphologically normal groin lymph node. Impression: 1. No right femoropopliteal venous thrombosis.
[2025-02-03] MEDS ORDERED: LOSARTAN POTASSIUM 50 MG TAB ONE (01:48)
[2025-02-03] MEDS: LOSARTAN POTASSIUM 50 MG TAB PO ONE (01:49)
[2025-02-03] MEDS ORDERED: CLINDAMYCIN 300MG IV 50 ML IV ONE (05:24)
[2025-02-03] MEDS: CLINDAMYCIN 300MG IV 50 ML IV SCH (05:24)
[2025-02-03] MEDS: ENOXAPARIN SOD 40 MG/0.4 ML SYRINGE SC SCH (10:00)
[2025-02-03 10:03] LABS: Hematocrit 37.6 % (36.0-46.0); Hemoglobin 12.5 g/dL (12.2-16.2); Mean Corpuscular Hemoglobin 28.3 pg (28.0-32.0); Mean Corpuscular Volume 85.5 fL (80.0-100.0); Nucleated Red Blood Cells % 0.0 %
[2025-02-03 10:05] LABS: Anion Gap 10 (5-15)
[2025-02-03 10:11] LABS: BUN/Creatinine Ratio 5.9 (10.0-20.0)
[2025-02-03 10:13] LABS: Blood Urea Nitrogen 6 mg/dL (9-23); Calcium 8.8 mg/dL (8.7-10.4); Carbon Dioxide 26 mmol/L (20-31); Chloride 107 mmol/L (98-107); Glucose 117 mg/dL (74-106); Potassium 3.4 mmol/L (3.5-5.1); Sodium 143 mmol/L (136-145)
[2025-02-03] MEDS: FUROSEMIDE 20 MG/2 ML VIAL IV ONE (10:15)
[2025-02-03] MEDS ORDERED: DOXYCYCLINE 100MG/100ML 100 ML IV ONE ×3 (10:59→21:13)
[2025-02-03] MEDS: DOXYCYCLINE 100MG/100ML 100 ML IV SCH (11:21)
[2025-02-03] MEDS ORDERED: MORPHINE SULFATE INJ 2 MG/ml SYRG ONE (13:20)
--- NOTE | 2025-02-03 15:59 | DVHPN2 ---
Progress Note Date Seen: Feb 03, 2025 Medical Necessity Reason Pt with a Central, PICC or Fol: No Subjective Review of Systems: CVS:Normal, RESPIRATORY:Normal, GI:Normal, NEURO:Normal Objective vital signs Vital Sign Date Time Temp Pulse Resp B/P (MAP) Pulse Ox O2 Delivery O2 Flow Rate FiO2 02/03/25 13:39 77 18 144/88 02/03/25 13:00 97.4 89 97.4 02/03/25 00:14 Room Air* 0 21 Total Intake and Output 02/02/25 02/02/25 02/03/25 15:00 23:00 07:00 Intake Total 340 ml Balance 340 ml medications Current Medications Medications Dose Ordered Sig/Markus Route Start Time Stop Time Status Last Admin Dose Admin Morphine Sulfate 2 mg Q4HPRN PRN IV 02/02/25 21:15 02/03/25 13:39 2 MG Enoxaparin Sodium 40 mg DAILY SC 02/03/25 10:00 Morphine Sulfate 2 mg Q30M PRN IV 02/02/25 21:15 Sodium Chloride 1,000 ml @ 100 mls/hr Q10H IV 02/02/25 22:00 02/03/25 11:23 100 MLS/HR Losartan Potassium 50 mg DAILY PO 02/04/25 10:00 Doxycycline Hyclate 100 ml @ 50 mls/hr Q12H IV 02/03/25 09:30 02/03/25 11:21 50 MLS/HR Ceftriaxone Sodium 50 ml @ 100 mls/hr DAILY@09 IV 02/04/25 09:00 Examination: GENERAL:Normal, LUNGS:Normal, CVS:Normal, ABDOMEN:Normal, SKIN:Normal, NEURO:Normal laboratory and microbiology Laboratory Tests 02/03/25 09:30 Test 02/03/25 09:30 Range/Units Serum Glucose 117 H 74-106 mg/dL Labs and/or images reviewed: Labs reviewed by me, Image(s) reviewed by me Problem List/Assessment/Plan Problem List/Assessment/Plan The patient reports that swelling and erythema in the right lower extremity started about a week ago following a mosquito bite. The patient denies any signs of sepsis, including tachycardia, hypotension, and fevers. There is no abscess or deep vein thrombosis present. The cellulitis appears to be localized to the right lower extremity, specifically in the medial ankle area. The onset was approximately one week ago, triggered by a mosquito bite. The patient describes swelling and erythema as the primary symptoms. The condition has persisted despite initial treatment with antibiotics prescribed by their primary care physician. The patient denies fever. Right Lower Extremity Cellulitis Assessment: Patient presents with right lower extremity cellulitis that developed approximately one week ago following a mosquito bite. The condition is characterized by swelling and erythema. There are no signs of sepsis, tachycardia, hypotension, or fever. Venous doppler of the right lower extremity was negative for deep vein thrombosis. Lower extremity ultrasound revealed subcutaneous fluid in the right medial ankle area without fluid collection, ruling out abscess formation. Plan: - Administer Rocephin 1 gram IV daily - Administer Doxycycline 100 mg PO daily - Administer one dose of Lasix 20 mg IV - Monitor patient's condition - Plan for discharge tomorrow if stable Hypertension Assessment: Patient has a history of hypertension managed with home medication. Plan: - Continue home medication: Losartan 50 mg PO daily Morbid Obesity Assessment: Patient has morbid obesity. Plan: - Monitor patient's condition Plan discussed with: Patient My Orders My Orders Orders - [facility]ERN Procedure Category Date Status Time Doxycycline PHA 02/03/25 In Process 100mg/100ml 09:30 Ceftriaxone 1gm/50ml PHA 02/04/25 In Process (Rocephin) 09:00 Urinalysis LAB 02/03/25 Logged 10:13 Communication Order ORDERS 02/03/25 Transmitted 10:13 B-Type Natriuretic LAB 02/03/25 Logged Peptide 15:52 Date of Service: Feb 03, 2025 Billing Provider: LORELEI DEAN MD Common Visit Codes: [id number] INP/OBS CARE (MOD) [facility] Feb 03, 2025 15:59
[2025-02-04] VITALS (7 sets, daily range): BP systolic 121–162; BP diastolic 71–98; PULSE 60–95; RESP 16–20; TEMP 97.2–98.4; O2SAT 94–98
[2025-02-04 10:34] LABS: Free T4 (Free Thyroxine) 1.17 ng/dL (0.89-1.76)
[2025-02-04] MEDS: LOSARTAN POTASSIUM 50 MG TAB PO SCH (12:24)
[2025-02-04] MEDS ORDERED: DOXY100C79 PO (14:39)
--- NOTE | 2025-02-04 14:41 | DVHDS2 ---
Discharge Summary Date of Admission Feb 02, 2025 at 21:10 Date of Discharge: Feb 04, 2025 Labs/Diagnostic Data: Laboratory Results Test 02/03/25 09:30 02/02/25 21:58 02/02/25 17:16 White Blood Count 7.9 10^3/uL (4.4-10.8) Red Blood Count 4.40 10^6/uL (4.0-5.20) Hemoglobin 12.5 g/dL (12.2-16.2) Hematocrit 37.6 % (36.0-46.0) Mean Corpuscular Volume 85.5 fL (80.0-100.0) Mean Corpuscular Hemoglobin 28.3 pg (28.0-32.0) Mean Corpuscular Hemoglobin Concent 33.1 g/dL (32.0-36.0) Red Cell Distribution Width 14.6 % (11.8-14.3) Platelet Count 235 10^3/uL (140-450) Mean Platelet Volume 7.7 fL (6.9-10.8) Neutrophils (%) (Auto) 57.8 % (37.0-80.0) Lymphocytes (%) (Auto) 28.3 % (10.0-50.0) Monocytes (%) (Auto) 10.1 % (0.0-12.0) Eosinophils (%) (Auto) 3.4 % (0.0-7.0) Basophils (%) (Auto) 0.4 % (0.0-2.0) Neutrophils # (Auto) 4.6 10 ^3/uL (1.6-8.6) Lymphocytes # (Auto) 2.2 10 ^3/uL (0.4-5.4) Monocytes # (Auto) 0.8 10 ^3/uL (0-1.3) Eosinophils # (Auto) 0.3 10 ^3/uL (0-0.8) Basophils # (Auto) 0 10 ^3/uL (0-0.2) Nucleated Red Blood Cells 0.0 % Sodium Level 143 mmol/L (136-145) Potassium Level 3.4 mmol/L (3.5-5.1) Chloride Level 107 mmol/L (98-107) Carbon Dioxide Level 26 mmol/L (20-31) Anion Gap 10 (5-15) Blood Urea Nitrogen 6 mg/dL (9-23) Creatinine 1.01 mg/dL (0.550-1.02) Glomerular Filtration Rate Calc 61 mL/min (>90) BUN/Creatinine Ratio 5.9 (10.0-20.0) Serum Glucose 117 mg/dL (74-106) Calcium Level 8.8 mg/dL (8.7-10.4) B-Type Natriuretic Peptide 14.88 pg/mL (0-100) Lactic Acid Level 1.5 mmol/L (0.4-2.0) Free Thyroxine (T4) Calculated 1.17 ng/dL (0.89-1.76) Total Triiodothyronine (TT3) 1.41 ng/mL (0.60-1.81) Prothrombin Time 10.8 sec (9.3-11.8) Prothrombin Time INR 1.02 (0.9-1.15) Activated Partial Thromboplast Time 26.8 SEC (24.5-34.5) Hemoglobin A1c 5.7 % A1C (<5.7) Phosphorus Level 3.0 mg/dL (2.4-5.1) Magnesium Level 2.1 mg/dL (1.6-2.6) Total Bilirubin 0.5 mg/dL (0.2-1.0) Direct Bilirubin 0.2 mg/dL (<0.3) Aspartate Amino Transferase (AST) 24 U/L (13-40) Alanine Aminotransferase (ALT) 16 U/L (7-40) Alkaline Phosphatase 97 U/L (46-116) Troponin I High Sensitivity 4 ng/L (</=34) Total Protein 7.6 g/dL (5.7-8.2) Albumin 4.5 g/dL (3.2-4.8) Triglycerides Level 74 mg/dL (< 150) Cholesterol Level 120 mg/dL (< 200) LDL Cholesterol 67 mg/dL (< 100) HDL Cholesterol 44 mg/dL (40-59) Vitamin B12 Level 402 pg/mL (211-911) Vitamin D 25-Hydroxy 21.9 ng/mL (30.0-100) Thyroid Stimulating Hormone (TSH) 0.51 uIU/mL (0.55-4.78) Other Laboratory Tests 02/03/25 09:30 Final Diagnosis/Problems List Right lower extremity cellulitis Discharge Disposition: Home Discharge Instruct/Medications Diet: Regular Activity: No Restrictions, As Tolerated Follow Up/Referral: pcp 1 week Scheduled Doxycycline (Monohydrate) (Doxycycline), 100 MG PO BIDAC Hctz (Hydrochlorothiazide), 12.5 MG PO DAILY Hctz (Hydrochlorothiazide), 25 MG GT DAILY Meloxicam (Mobic), 7.5 MG PO BID Nebivolol HCl (Nebivolol), 5 MG PO DAILY Scheduled PRN Cyclobenzaprine Hcl (Cyclobenzaprine Hcl), 7.5 MG PO Q12HP PRN Discharge Statement: "Patient was advised to return to the ER or call 911 if any headaches, dizziness, shortness of breath, chest pain, abdominal pain, bleeding, fevers, or worsening of medical condition. Patient was counseled about treatment plan, medications, possible side effects, patientverbalized understanding. All questions were answered to the best of my ability. This discharge took greater then 30 minutes in planning, reviewing documentation, counseling the patient, and discussing with other team members." ASSESSMENT ASSESSMENT Assessment Right lower extremity cellulitis DAVID JEFFERSON NP Feb 04, 2025 14:40
--- NOTE | 2025-02-04 14:52 | DVHPN2 ---
Progress Note - Dictate Date Seen: Feb 04, 2025 Medical Necessity Reason Pt with a Central, PICC or Fol: No vital signs Vital Sign Date Time Temp Pulse Resp B/P (MAP) Pulse Ox O2 Delivery O2 Flow Rate FiO2 02/04/25 13:00 98.0 63 16 141/81 (101) 97 98.0 02/04/25 08:30 Room Air* 0 21 Total Intake and Output 02/03/25 02/03/25 02/04/25 15:00 23:00 07:00 Intake Total 390 ml 800 ml 100 ml Balance 390 ml 800 ml 100 ml medications Current Medications Medications Dose Ordered Sig/Markus Route Start Time Stop Time Status Last Admin Dose Admin Morphine Sulfate 2 mg Q4HPRN PRN IV 02/02/25 21:15 02/03/25 21:19 2 MG Enoxaparin Sodium 40 mg DAILY SC 02/03/25 10:00 Morphine Sulfate 2 mg Q30M PRN IV 02/02/25 21:15 Sodium Chloride 1,000 ml @ 100 mls/hr Q10H IV 02/02/25 22:00 02/04/25 04:00 100 MLS/HR Losartan Potassium 50 mg DAILY PO 02/04/25 10:00 02/04/25 12:24 50 MG Doxycycline Hyclate 100 ml @ 50 mls/hr Q12H IV 02/03/25 09:30 02/03/25 21:16 50 MLS/HR Ceftriaxone Sodium 50 ml @ 100 mls/hr DAILY@09 IV 02/04/25 09:00 02/04/25 12:23 100 MLS/HR objective General Appearance: alert, no distress HEENT: EOMI, PERRLA, normal external inspect of ears, no icterus, no nasal drainage Neck: no carotid bruit, no jugular venous distention (JVD), no lymphadenopathy Chest: normal thorax Respiratory: clear to auscultation, normal air movement Cardiovascular: regular rate and rhythm, no diastolic murmur, no jugular venous distention (JVD), no rub, no systolic murmur Abdominal: soft, no hepatomegaly, no mass, no splenomegaly, no tenderness Genitourinary: grossly normal external Musculoskeletal: no joint tenderness, no swelling Extremities: normal pulses, no calf tenderness, no clubbing, no cyanosis, no edema Skin: no bruising, no jaundice, no rash Neurological: alert, No focal deficit laboratory and microbiology Laboratory Tests 02/03/25 09:30 Test 02/03/25 09:30 Range/Units Serum Glucose 117 H 74-106 mg/dL Problem List Right Lower Extremity Cellulitis Assessment: Patient presents with right lower extremity cellulitis that developed approximately one week ago following a mosquito bite. The condition is characterized by swelling and erythema. There are no signs of sepsis, tachycardia, hypotension, or fever. Venous doppler of the right lower extremity was negative for deep vein thrombosis. Lower extremity ultrasound revealed subcutaneous fluid in the right medial ankle area without fluid collection, ruling out abscess formation. Plan: - Administer Rocephin 1 gram IV daily - Administer Doxycycline 100 mg PO daily - Administer one dose of Lasix 20 mg IV - Monitor patient's condition - Plan for discharge tomorrow if stable Hypertension Assessment: Patient has a history of hypertension managed with home medication. Plan: - Continue home medication: Losartan 50 mg PO daily Morbid Obesity Assessment: Patient has morbid obesity. Plan: - Monitor patient's condition Assessment/Plan Subjective: Patient is awake and alert. Objective: Patient was admitted for right lower extremity pain related to cellulitis. Exam shows mild redness around the ankle extending to the foot, tender to touch, and mildly swollen compared to the left lower extremity. Discharge was attempted today; however, the patient refused, stating she was still experiencing pain and that during her recent prior discharge, she did not receive antibiotics adequate to treat her infection. Plan: Continue antibiotics with doxycycline and Rocephin. Plan to discharge home tomorrow on oral antibiotics for 2 weeks. Plan discussed with: Patient, Other DAVID JEFFERSON NP Feb 04, 2025 14:52
[2025-02-04] MEDS: DOXYCYCLINE 100MG/100ML 100 ML IV SCH (16:40)
[2025-02-05 01:00] VITALS: BP 150/97; PULSE 74; RESP 18; TEMP 98.1; O2SAT 97
[2025-02-05 05:36] LABS: Urine Budding Yeast OCCASIONAL /hpf (None Seen); Urine Protein, UAD Negative (Negative)
[2025-02-05 08:00] VITALS: PULSE 65; RESP 18; O2SAT 95
[2025-02-05 09:00] VITALS: BP 136/85; PULSE 65; RESP 18; TEMP 97.8; O2SAT 95
[2025-02-05] MEDS ORDERED: CEFP200T15 PO (12:57)
--- NOTE | 2025-02-05 12:58 | DVHDS2 ---
Discharge Summary Date of Admission Feb 02, 2025 at 21:10 Date of Discharge: Feb 05, 2025 Labs/Diagnostic Data: Laboratory Results Test 02/05/25 04:00 02/03/25 09:30 02/02/25 21:58 02/02/25 17:16 Urine Color Colorless (Yellow) Urine Clarity Clear (Clear) Urine pH 6.5 (5.0-9.0) Urine Specific [place] 1.010 (1.001-1.035) Urine Protein Negative (Negative) Urine Ketones Negative (Negative) Urine Blood Negative /uL (Negative) Urine Nitrite Negative (Negative) Urine Bilirubin Negative (Negative) Urine Urobilinogen Normal mg/dL (Negative) Urine Leukocyte Esterase Negative /uL (Negative) Urine RBC None seen /hpf (0 - 4) Urine Microscopic WBC < 1 /HPF (0-5) Urine Squamous Epithelial Cells Few /hpf (<5) Urine Bacteria None seen /hpf (None Seen) Urine Yeast (Budding) Occasional /hpf (None Urine Glucose Normal mg/dL (Normal) White Blood Count 7.9 10^3/uL (4.4-10.8) Red Blood Count 4.40 10^6/uL (4.0-5.20) Hemoglobin 12.5 g/dL (12.2-16.2) Hematocrit 37.6 % (36.0-46.0) Mean Corpuscular Volume 85.5 fL (80.0-100.0) Mean Corpuscular Hemoglobin 28.3 pg (28.0-32.0) Mean Corpuscular Hemoglobin Concent 33.1 g/dL (32.0-36.0) Red Cell Distribution Width 14.6 % (11.8-14.3) Platelet Count 235 10^3/uL (140-450) Mean Platelet Volume 7.7 fL (6.9-10.8) Neutrophils (%) (Auto) 57.8 % (37.0-80.0) Lymphocytes (%) (Auto) 28.3 % (10.0-50.0) Monocytes (%) (Auto) 10.1 % (0.0-12.0) Eosinophils (%) (Auto) 3.4 % (0.0-7.0) Basophils (%) (Auto) 0.4 % (0.0-2.0) Neutrophils # (Auto) 4.6 10 ^3/uL (1.6-8.6) Lymphocytes # (Auto) 2.2 10 ^3/uL (0.4-5.4) Monocytes # (Auto) 0.8 10 ^3/uL (0-1.3) Eosinophils # (Auto) 0.3 10 ^3/uL (0-0.8) Basophils # (Auto) 0 10 ^3/uL (0-0.2) Nucleated Red Blood Cells 0.0 % Sodium Level 143 mmol/L (136-145) Potassium Level 3.4 mmol/L (3.5-5.1) Chloride Level 107 mmol/L (98-107) Carbon Dioxide Level 26 mmol/L (20-31) Anion Gap 10 (5-15) Blood Urea Nitrogen 6 mg/dL (9-23) Creatinine 1.01 mg/dL (0.550-1.02) Glomerular Filtration Rate Calc 61 mL/min (>90) BUN/Creatinine Ratio 5.9 (10.0-20.0) Serum Glucose 117 mg/dL (74-106) Calcium Level 8.8 mg/dL (8.7-10.4) B-Type Natriuretic Peptide 14.88 pg/mL (0-100) Lactic Acid Level 1.5 mmol/L (0.4-2.0) Free Thyroxine (T4) Calculated 1.17 ng/dL (0.89-1.76) Total Triiodothyronine (TT3) 1.41 ng/mL (0.60-1.81) Prothrombin Time 10.8 sec (9.3-11.8) Prothrombin Time INR 1.02 (0.9-1.15) Activated Partial Thromboplast Time 26.8 SEC (24.5-34.5) Hemoglobin A1c 5.7 % A1C (<5.7) Phosphorus Level 3.0 mg/dL (2.4-5.1) Magnesium Level 2.1 mg/dL (1.6-2.6) Total Bilirubin 0.5 mg/dL (0.2-1.0) Direct Bilirubin 0.2 mg/dL (<0.3) Aspartate Amino Transferase (AST) 24 U/L (13-40) Alanine Aminotransferase (ALT) 16 U/L (7-40) Alkaline Phosphatase 97 U/L (46-116) Troponin I High Sensitivity 4 ng/L (</=34) Total Protein 7.6 g/dL (5.7-8.2) Albumin 4.5 g/dL (3.2-4.8) Triglycerides Level 74 mg/dL (< 150) Cholesterol Level 120 mg/dL (< 200) LDL Cholesterol 67 mg/dL (< 100) HDL Cholesterol 44 mg/dL (40-59) Vitamin B12 Level 402 pg/mL (211-911) Vitamin D 25-Hydroxy 21.9 ng/mL (30.0-100) Thyroid Stimulating Hormone (TSH) 0.51 uIU/mL (0.55-4.78) Other Laboratory Tests 02/03/25 09:30 Brief Hx & Hospital Course: Patient was admitted on 02/02/2025 for cellulitis to right lower extremity. Patient states she has failed antibiotics with Keflex outpatient. Patient was started on IV doxycycline and vancomycin. She was transitioned to cefpodoxime and oral doxycycline. Patient will continue oral antibiotics for 10-day duration. She was instructed to follow-up with her PCP in 1 week. Patient was also given pain medications for 10 days as needed. The patient received proper medical treatment and medications. Vital signs, Imaging and Laboratory Work was monitored daily. All consults recommendations were followed as provided. There were no complaints or new complaints upon discharge, all questions and concerns were answered. Patient was advised to return to the ER or call 911 if any headaches, dizziness, shortness of breath, chest pain, bleeding, fevers, or worsening of medical condition. Patient/Family was counseled about treatment plan, medications, possible side effects, patient verbalized understanding. All questions were answered to the best of my ability. The patient symptoms improved and they are okay to be DC. Condition at Discharge: Stable Final Diagnosis/Problems List Right lower extremity cellulitis Hypertension Morbid obesity Discharge Disposition: Home Discharge Instruct/Medications Diet: Regular Activity: No Restrictions, As Tolerated Follow Up/Referral: pcp 1 week Scheduled Cefpodoxime Proxetil (Cefpodoxime Proxetil), 1 TAB PO BID Doxycycline (Monohydrate) (Doxycycline), 100 MG PO BIDAC Hctz (Hydrochlorothiazide), 12.5 MG PO DAILY Meloxicam (Mobic), 7.5 MG PO BID Nebivolol HCl (Nebivolol), 5 MG PO DAILY Scheduled PRN Hydrocodone-Acetaminophen (Hydrocodone Bitartrate/AC 5-325 mg), 1 TAB PO Q8HP PRN Discontinued Medications Cyclobenzaprine Hcl (Cyclobenzaprine Hcl), 7.5 MG PO Q12HP PRN Hctz (Hydrochlorothiazide), 25 MG GT DAILY Discharge Statement: "Patient was advised to return to the ER or call 911 if any headaches, dizziness, shortness of breath, chest pain, abdominal pain, bleeding, fevers, or worsening of medical condition. Patient was counseled about treatment plan, medications, possible side effects, patientverbalized understanding. All questions were answered to the best of my ability. This discharge took greater then 30 minutes in planning, reviewing documentation, counseling the patient, and discussing with other team members." ASSESSMENT ASSESSMENT Assessment Right lower extremity cellulitis DAVID JEFFERSON [employer] Feb 05, 2025 12:58
[2025-02-05 13:00] VITALS: BP_SYST 100; BP_SYST 134; BP_DIAS 64; BP_DIAS 78; PULSE 71; PULSE 85; RESP 17; RESP 18; TEMP 97.6; TEMP 97.9; O2SAT 97; O2SAT 98
[2025-02-05] MEDS ORDERED: HYDR-4902 PO (13:39)
[2025-02-05 14:58] VITALS: BP 145/77
== END 2025-02-05 16:40 | disposition home or self-care (01) | DRG 603 ==
LOC: ER 14:46 → OVERFLOW 21:10 → WEST WING 23:35
PROVIDERS: ADMIT Student in an Organized Health Care Education/Training Program; ATTEND Nurse Practitioner Family
DX: L03.115 Cellulitis of right lower limb (principal); N39.0 Urinary tract infection, site not specified; E66.01 Morbid (severe) obesity due to excess calories; I10 Essential (primary) hypertension; E87.6 Hypokalemia; Z90.49 Acquired absence of other specified parts of digestive tract; Z79.899 Other long term (current) drug therapy; Z68.34 Body mass index [BMI] 34.0-34.9, adult
CPT/HCPCS: 36415; 76881; 80048; 80061; 80076; 81001; 82306; 82607; 83036; 83605; 83735; 83880; 84100; 84439; 84443; 84480; 84484; 85025; 85610; 85730; 87040; 93971; 96365; G0378; J3490